=== PATIENT | female | born 1980 | race Caucasian/White ===

== ENCOUNTER 2017-01-29 12:19 | Emergency (ER) | END 2017-01-29 14:46 | disposition home or self-care (01) | DX: O9A.212 Injury, poisoning and certain other consequences of external causes complicating pregnancy, second trimester (principal); S82.831A Other fracture of upper and lower end of right fibula, initial encounter for closed fracture; W18.39XA Other fall on same level, initial encounter; Y92.9 Unspecified place or not applicable; Z3A.14 14 weeks gestation of pregnancy | CPT/HCPCS: 29515; 73590; 73610; 73630; 76801; Z7502; Z7610 ==

== ENCOUNTER 2018-02-21 18:26 | Emergency (ER) | END 2018-02-21 19:25 | disposition home or self-care (01) ==